=== PATIENT | male | born 1995 | race Two or more races ===

== ENCOUNTER 2024-09-13 20:30 | Emergency (ER) | payer MEDICAID, SELFPAY ==
--- NOTE | 2024-09-13 20:35 | PC.NURSE ---
Pt. walked outside and started cussing, pt. didn't come back. Unable to finish triage.
== END 2024-09-13 23:27 | disposition left against medical advice (07) ==
LOC: SERX 20:41
PROVIDERS: Emergency Provider Emergency Medicine
DX: Z53.21 Procedure and treatment not carried out due to patient leaving prior to being seen by health care provider (principal)

== ENCOUNTER 2024-09-14 23:37 | Emergency (ER) | payer MEDICAID, SELFPAY | END 2024-09-15 00:03 | disposition left against medical advice (07) | LOC: SERX 09-15 00:23 | PROVIDERS: Emergency Provider Emergency Medicine | DX: Z53.21 Procedure and treatment not carried out due to patient leaving prior to being seen by health care provider (principal) ==

== ENCOUNTER 2024-09-15 02:07 | Emergency (ER) | payer MEDICAID, SELFPAY ==
--- NOTE | 2024-09-15 02:26 | PC.NURSE ---
SEEN PT LEAVING ER.
--- NOTE | 2024-09-15 02:26 | PC.NURSE ---
INFORMED BY PROJECT BUYER THAT THE PT LEFT THE LOBBY AND I WALKING DOWN THE ROAD.
== END 2024-09-15 03:58 | disposition left against medical advice (07) ==
PROVIDERS: Emergency Provider Emergency Medicine
DX: Z53.21 Procedure and treatment not carried out due to patient leaving prior to being seen by health care provider (principal)

== ENCOUNTER 2024-09-16 00:42 | Emergency (ER) | payer MEDICAID, SELFPAY ==
[2024-09-16 00:58] VITALS: BP 148/96; PULSE 99; RESP 18; TEMP 36.9; O2SAT 100; BMI 24.1
--- NOTE | 2024-09-16 02:37 | PC.NURSE ---
PT WALKED OUT OF ER LOBBY AND LEFT
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
== END 2024-09-16 02:52 | disposition left against medical advice (07) ==
LOC: SERX 03:21
PROVIDERS: Emergency Provider Emergency Medicine
DX: H57.10 Ocular pain, unspecified eye (principal); Z53.29 Procedure and treatment not carried out because of patient's decision for other reasons
CPT/HCPCS: 99281

== ENCOUNTER 2024-10-22 10:06 | Emergency (ER) | payer SELFPAY ==
--- NOTE | 2024-10-22 11:10 | PC.NURSE ---
called pt back, no answer at this time
--- NOTE | 2024-10-22 11:26 | PD.EDRME ---
Rapid Medical Screening Exam RME Arrival date/time: 10/22/24 10:06 Chief Complaint: Eye Problems Time Seen by Provider: 10/22/24 10:58
--- NOTE | 2024-10-22 14:47 | PC.NURSE ---
PT CALLED MULTIPLE TIMES BY STAFF NO RESPONSE THIS RN LOOKED IN LOBBY AND OUT SIDE, PT NOT HERE. PT ELOPED
== END 2024-10-22 14:49 | disposition left against medical advice (07) ==
LOC: SERX 14:18
PROVIDERS: Emergency Provider Family Medicine
DX: Z53.21 Procedure and treatment not carried out due to patient leaving prior to being seen by health care provider (principal)

== ENCOUNTER 2025-03-01 23:15 | Emergency (ER) | payer MEDICAID, SELFPAY ==
[2025-03-01 23:17] VITALS: BMI 22.8
--- NOTE | 2025-03-02 00:05 | PC.NURSE ---
Pt did not answer when name was called and was not found outside.
--- NOTE | 2025-03-02 00:25 | PC.NURSE ---
Pt did not answer when name was called in the lobby and was not found outside.
== END 2025-03-01 23:20 | disposition left against medical advice (07) ==
LOC: SERX 23:37
PROVIDERS: Emergency Provider Emergency Medicine
DX: Z53.21 Procedure and treatment not carried out due to patient leaving prior to being seen by health care provider (principal)
CPT/HCPCS: 99282

== ENCOUNTER 2025-03-03 20:13 | Emergency (ER) | payer MEDICAID, SELFPAY ==
[2025-03-03 20:19] VITALS: BP 144/81; PULSE 88; RESP 17; TEMP 36.9; O2SAT 95; BMI 22.8
--- NOTE | 2025-03-03 20:57 | PD.EDADULT ---
ED General RME/HPI General Chief complaint: General Adult/Misc Complain Stated complaint: HAND PROBLEM Time Seen by Provider: 03/03/25 20:43 Arrival date/time: 03/03/25 20:13 RME / HPI RME / HPI narrative: 29-year-old male patient was brought in for evaluation regarding back pain. Patient is homeless, came in for chronic back pain, described as dull ache, severity mild. Patient is ambulatory. Patient denies any trauma or fall denies any dysuria denies any fever denies any vomiting denies any other complaints. Patient also denies any saddle anesthesia denies any bladder incontinence denies any bowel incontinence. Patient is ambulatory. Related Data Previous Rx's ?Medication ?Instructions ?Recorded erythromycin 5 mg/gram (0.5 %) eye 0.5 inch ophthalmic (eye) QID #3.5 11/22/23 ointment grams naproxen 500 mg tablet 500 mg PO BID PRN pain #30 tabs 05/14/24 ibuprofen 800 mg tablet 800 mg PO TID PRN pain #30 tabs 03/03/25 Allergies Allergy/AdvReac Type Severity Reaction Status Date / Time No Known Allergies Allergy Verified 03/01/25 23:21 Review of Systems Review of Systems Narrative Review of Systems: Review of system reviewed and within normal limits except mentioned in HPI ED Exam Narrative Physical exam: VITAL SIGNS: Reviewed. GENERAL APPEARANCE: Alert and interactive, follows commands, no acute distress, unkept HEAD AND FACE: Non-traumatic. ENT: PERRL, pink conjunctivitis, eyelid no trauma, Mucous membrane moist. NECK: Supple, nontender, no nuchal rigidity. CHEST: No tenderness, no crepitus, no paradoxical movement, no retractions. LUNGS: Clear, well ventilated, symmetric, no rales, no wheezing, no ronchi, no stridor, good breath sounds bilaterally. HEART: Regular rate, regular rhythm, no murmur, no gallops. ABDOMEN: Soft, positive bowel sounds, nondistended, no guarding, nontender, no rebound, no masses, RECTAL: Deferred. GENITAL: Deferred. NEUROLOGICAL: Gross motor function intact sensory function intact, Appropriate for age. MUSCULOSKELETAL: low back tenderness, no midline tenderness, full range of motion. EXTREMITIES: Nontender, full range of motion. SKIN: Color pink, dry, no rash, no lacerations, no abrasions, no contusions. LYMPHATICS: Deferred. Course Quality Measures none Orders Category Date Time Status Ibuprofen Tab [Motrin Tab] Med 03/03/25 20:55 Discontinued 800 mg PO X1 ONE Vital Signs Vital signs: Vital Signs Temperature 98.4 F 03/03/25 20:19 Pulse Rate 88 03/03/25 20:19 Respiratory Rate 17 03/03/25 20:19 Blood Pressure 144/81 H 03/03/25 20:19 Pulse Oximetry (%) 95 03/03/25 20:19 Oxygen Delivery Method Room Air 03/03/25 20:19 Discharge Plan Plan Patient Disposition: HOME (Self Care) Discharge Disposition comment: Stable Prescriptions/Referrals Prescriptions/Med Rec: New ibuprofen 800 mg tablet 800 mg PO TID PRN (Reason: pain) Qty: 30 0RF No Action naproxen 500 mg tablet 500 mg PO BID PRN (Reason: pain) Qty: 30 0RF erythromycin 5 mg/gram (0.5 %) ointment 0.5 inch ophthalmic (eye) QID Qty: 3.5 0RF Referrals: No Primary/Family,Physician [Primary Care Provider] - In 1 week Problem List Clinical Impression: Chronic low back pain Patient/Caregiver Discharge Instructions Discharge Activity: activity as tolerated Education Materials: ED Chronic Pain Additional Instructions: Thank you for the opportunity for serving you today. You are stable for discharged . You are advised to: Follow-up with your PCP in 1 to 2 days Return to ED for worsening of symptoms Increase oral fluids Take medication as prescribed Print Language: Frisian Stand Alone Forms: Sydney Award Info., Patient Portal Info Letter RAO/TANYA Supervising Physician JERRELL Supervising Physician: MD Nabil [facility] Narrative [facility] hospital course: 29-year-old male patient was brought in for evaluation regarding back pain. Patient is homeless, came in for chronic back pain, described as dull ache, severity mild. He had a back pain for a while now. Patient is ambulatory. Patient denies any trauma or fall denies any dysuria denies any fever denies any vomiting denies any other complaints. Patient also denies any saddle anesthesia denies any bladder incontinence denies any bowel incontinence. Patient is ambulatory. Imaging workup presented at this time. Patient is not showing any sign of cauda equina syndrome. Patient had chronic back pain. Patient is ambulatory. No recent trauma or fall. No fever. Patient received Motrin. Significant provide of pain. Patient is also asking for a shoes however we do not have shoes available at this time. Patient stable for discharge home Medication Administration(s) Medication Administration History Discontinued Medications Ibuprofen (Ibuprofen Tab 400 Mg Tablet) 800 mg PO X1 ONE Stop: 03/03/25 20:56 Diagnosis Differential diagnosis: Chronic back pain, lumbar strain degenerative disc disease Most likely dx, and/or detailed dx discussion: Chronic back pain, homelessness
[2025-03-03] MEDS: IBUPROFEN TAB 400 MG TABLET 800 MG PO (21:03)
== END 2025-03-03 21:06 | disposition home or self-care (01) ==
PROVIDERS: Emergency Provider Emergency Medicine
DX: M54.50 Low back pain, unspecified (principal); G89.29 Other chronic pain; Z59.00 Homelessness unspecified
CPT/HCPCS: 99282; A9270

== ENCOUNTER 2025-05-14 01:30 | Emergency (ER) | payer MEDICAID, SELFPAY ==
[2025-05-14 01:34] VITALS: BP 136/72; PULSE 104; RESP 18; TEMP 36.8; O2SAT 99
--- NOTE | 2025-05-14 02:07 | PD.EDHA ---
ED Headache RME/HPI General Chief Complaint: Eye Problems Stated Complaint: EYE SWELLING Time Seen by Provider: 05/14/25 02:06 Arrival date/time: 05/14/25 01:30 RME / HPI RME / HPI Narrative: See [facility] for Dr. Poon's HPI Documentation. Related Data Previous Rx's ?Medication ?Instructions ?Recorded erythromycin 5 mg/gram (0.5 %) eye 0.5 inch ophthalmic (eye) QID #3.5 11/22/23 ointment grams naproxen 500 mg tablet 500 mg PO BID PRN pain #30 tabs 05/14/24 ibuprofen 800 mg tablet 800 mg PO TID PRN pain #30 tabs 03/03/25 Allergies Allergy/AdvReac Type Severity Reaction Status Date / Time No Known Allergies Allergy Verified 03/01/25 23:21 Review of Systems Review of Systems Systems Reviewed: All systems reviewed, normal except as documented Past Medical History Past Medical History PSYCHO/SOCIAL: Positive Recreational Drug Use Social History SMOKING STATUS: Current some day smoker HOUSING: Homeless ED Exam Narrative Physical exam: See [facility] for Dr. Poon's Physical Exam Documentation. Course Quality Measures none Orders Category Date Time Status Acetaminophen Tab [Tylenol Tab] Med 05/14/25 02:07 Discontinued 650 mg PO X1 ONE Vital Signs Vital signs: Vital Signs Temperature 98.3 F 05/14/25 01:34 Pulse Rate 104 H 05/14/25 01:34 Respiratory Rate 18 05/14/25 01:34 Blood Pressure 136/72 H 05/14/25 01:34 Pulse Oximetry (%) 99 05/14/25 01:34 Oxygen Delivery Method Room Air 05/14/25 01:34 Headache MDM Narrative [facility] Narrative:: This section includes all my notes and documentations, including HPI, PE, and ED course. Daniel Poon MD HPI: 29 y/o male with Hx of Homelessness and Recreational Drug Use presents with headache. Not the worst headache of his life. Has trouble describing the onset. Has trouble describing the quality and quantity of the pain. Has show describing exacerbating factors or relieving factors. No dizziness. No speech or visual impairment. No loss of power in arms or legs. No numbness or tingling. No other complaints. ROS: All negative except as documented in HPI. General:? Alert and oriented.? No acute distress.?? Eyes:? Conjunctivae and lids clear.? EOMI.? PERRL. ENT:? No nasal congestion.? Pharynx normal.? Tympanic membrane normal bilaterally.??? Neck:? Supple.? No carotid bruit.? No JVD.?? Heart:? RRR.? Lungs:? No respiratory distress.? Good air movement.? No rhonchi, wheezing, rales.?? Abdomen:? Soft and nontender.? Skin:? Warm and dry.?? Neuro:? Alert and oriented X 3.? Cranial Nerves II-XII grossly intact.? No peripheral motor deficits. At this point, diagnoses include: Tension headache Treatment here included: Tylenol 650 mg He started to feel better. Recommended supportive care. Based on my best medical judgment, made decision no further evaluation or treatment indicated at this time. Patient understands and agrees to the discharge instructions customized and printed, see below. Discharge Instructions from [facility] ER printed for you: 1. Because your headache is not the worst headache of your life, no diagnostics performed. 2. Tylenol/ibuprofen as needed. 3. See a private doctor on 05/15/2025 for recheck. If needed, ask for referral to see neurologist. 4. Seek immediate medical care with worsening or with any concerns. Daniel Poon MD Patient data External records reviewed:: [facility] previous records (Reviewed prior ED records from 03/03/25. Patient was seen for Chronic low back pain.) Clinical information provided by:: patient Social determinants that could affect healthcare access:: housing (Homeless, Recreational Drug Use) Patient has the following chronic illnesses:: Recreational Drug Use How is presenting disease/condition affected by chronic disease/condition?: exacerbated by Evaluation data The following diagnostics were reviewed and interpreted by me:: other (specify) (N/A) Lab and/or radiology exams considered but not ordered:: None Interpretation Summary: None Medications / Prescriptions Medications or Prescriptions considered but not ordered:: None Medication administrations:: Medication Administration History Discontinued Medications Acetaminophen (Acetaminophen 325 Mg Tablet) 650 mg PO X1 ONE Stop: 05/14/25 02:08 Last Admin: 05/14/25 02:20 Dose: 650 mg Documented By: CVL Tylenol 650 mg Consultations Consultation(s) initiated? (list below): No Diagnosis Differential diagnosis headache: migraine, tension headache, headache and sinusitis Most likely diagnosis given after review of the tests above:: Headache Admission Indicated Admission indicated?: not indicated Explain why admission is indicated or not indicated:: With significant improvement and no condition needing emergent intervention, there was no indication for admission. Admission Request Was there a request for admission?: No Disposition Plan Disposition Plan: Discharge Discharge Attestation Discharge Attestation: The patient and all family members were given an opportunity to ask questions and understood the discharge instructions. Discharge instructions specifically effects, indications for sooner follow up or return to the emergency department, and the expected course of current diagnosis. Patient condition: Stable Discharge Plan Plan Patient Disposition: HOME (Self Care) Prescriptions/Referrals Prescriptions/Med Rec: No Action naproxen 500 mg tablet 500 mg PO BID PRN (Reason: pain) Qty: 30 0RF ibuprofen 800 mg tablet 800 mg PO TID PRN (Reason: pain) Qty: 30 0RF erythromycin 5 mg/gram (0.5 %) ointment 0.5 inch ophthalmic (eye) QID Qty: 3.5 0RF Problem List Clinical Impression: Headache Patient/Caregiver Discharge Instructions Discharge Activity: activity as tolerated Education Materials: ED Headache, Tension Additional Instructions: Discharge Instructions from [facility] ER printed for you: 1. Because your headache is not the worst headache of your life, no diagnostics performed. 2. Tylenol/ibuprofen as needed. 3. See a private doctor on 05/15/2025 for recheck. If needed, ask for referral to see neurologist. 4. Seek immediate medical care with worsening or with any concerns. Print Language: Omani
[2025-05-14] MEDS: ACETAMINOPHEN 325 MG TABLET 650 MG PO (02:20)
[2025-05-14 02:31] VITALS: RESP 12
== END 2025-05-14 02:13 | disposition home or self-care (01) ==
LOC: SERX 03:13
PROVIDERS: Emergency Provider Emergency Medicine
DX: R51.9 Headache, unspecified (principal)
CPT/HCPCS: 99283; A9270

== ENCOUNTER 2025-05-16 00:17 | Emergency (ER) | payer MEDICAID, SELFPAY ==
[2025-05-16 00:18] VITALS: BMI 22.8
[2025-05-16 00:42] VITALS: BP 120/79; PULSE 97; RESP 20; TEMP 36.9; O2SAT 96
--- NOTE | 2025-05-16 00:59 | EDNOTE_ITS ---
ED Eye Problem RME/HPI General Chief complaint: Eye Problems Stated complaint: LT EYE HURTS Time Seen by Provider: 05/16/25 00:55 Arrival date/time: 05/16/25 00:17 RME / HPI RME / HPI Narrative: See [facility] for Dr. Poon's HPI Documentation. Related Data Previous Rx's ?Medication ?Instructions ?Recorded erythromycin 5 mg/gram (0.5 %) eye 0.5 inch ophthalmic (eye) QID #3.5 11/22/23 ointment grams naproxen 500 mg tablet 500 mg PO BID PRN pain #30 t abs 05/14/24 ibuprofen 800 mg tablet 800 mg PO TID PRN pain #30 t abs 03/03/25 [id number] 3.5 1 drp ophthalmic (eye) Q6H 5 days 05/16/25 mg/mL-10,000 unit/mL-0.1% eye #5 mL drops (Maxitrol) Allergies Allergy/AdvReac Type Severity Reaction Status Date / Time No Known Allergies Allergy Verified 03/01/25 23:21 Review of Systems Review of Systems Systems Reviewed: All systems reviewed, normal except as documented Past Medical History Past Medical History PSYCHO/SOCIAL: Positive Recreational Drug Use ED Exam Narrative Physical exam: See [facility] for Dr. Poon's Physical Exam Documentation. Course Quality Measures none Vital Signs Vital signs: Vital Signs Temperature 98.5 F 05/16/25 00:42 Pulse Rate 97 05/16/25 00:42 Respiratory Rate 20 05/16/25 00:42 Blood Pressure 120/79 05/16/25 00:42 Pulse Oximetry (%) 96 05/16/25 00:42 Oxygen Delivery Method Room Air 05/16/25 00:42 Eye [facility] Narrative [facility] Narrative:: This section includes all my notes and documentations, including HPI, PE, and ED course. Daniel Poon MD HPI: 29 y/o male with Hx of Recreational Drug use presents with left eye pain and redness and green crusting for several days. No other complaints. ROS: All negative except as documented in HPI. Physical Exam: General: Alert and oriented. Eyes: Left conjunctiva injected with exudate. ENT: No nasal congestion. Neck: Supple. Lungs: No respiratory distress. Skin: Warm and dry. Neuro: Alert and oriented X 3. At this point, diagnoses include: Bacterial Conjunctivitis Recommended outpatient care. Based on my best medical judgment, made decision no further evaluation or treatment indicated at this time. Patient understands and agrees to the discharge instructions customized and printed, see below. Discharge Instructions from Dr. Poon printed for you: 1. Use the eyedrops for your right eye infection. 2. See a private doctor on 05/17/2025 for recheck. To make sure you are healing without complications. Ask for referral to see mental health program specialist. 3. Seek immediate medical care with worsening or with any concerns. Daniel Poon MD Patient data External records reviewed:: [facility] previous records (Reviewed prior ED records from 05/14/25. Patient was seen for Headache.) Clinical information provided by:: patient Social determinants that could affect healthcare access:: substance use Patient has the following chronic illnesses:: Recreational Drug Use How is presenting disease/condition affected by chronic disease/condition?: exacerbated by Evaluation data The following diagnostics were reviewed and interpreted by me:: other (specify) (N/A) Lab and/or radiology exams considered but not ordered:: None Interpretation Summary: None Medications / Prescriptions Medications or Prescriptions considered but not ordered:: None Medication administrations:: None Consultations Consultation(s) initiated? (list below): No Diagnosis Eye Problem Differential Diagnosis: corneal abrasion, conjunctivitis, acute iritis, hyphema, periorbital cellulitis, subconjunctival hemorrhage, glaucoma, corneal ulcer and ruptured globe Most likely diagnosis given after review of the tests above:: Bacterial Conjunctivitis Admission Indicated Admission indicated?: not indicated Explain why admission is indicated or not indicated:: With no condition needing emergent intervention, there was no indication for admission. Admission Request Was there a request for admission?: No Disposition Plan Disposition Plan: Discharge Discharge Attestation Discharge Attestation: The patient and all family members were given an opportunity to ask questions and understood the discharge instructions. Discharge instructions specifically effects, indications for sooner follow up or return to the emergency department, and the expected course of current diagnosis. Patient condition: Stable Discharge Plan Plan Patient Disposition: HOME (Self Care) Prescriptions/Referrals Prescriptions/Med Rec: New neomycin-polymyxin B-dexameth [Maxitrol] 3.5mg/mL-10,000 unit/mL-0.1 % drops,suspension 1 drp ophthalmic (eye) Q6H 5 Days Qty: 5 0RF No Action naproxen 500 mg tablet 500 mg PO BID PRN (Reason: pain) Qty: 30 0RF ibuprofen 800 mg tablet 800 mg PO TID PRN (Reason: pain) Qty: 30 0RF erythromycin 5 mg/gram (0.5 %) ointment 0.5 inch ophthalmic (eye) QID Qty: 3.5 0RF Problem List Clinical Impression: Bacterial conjunctivitis Patient/Caregiver Discharge Instructions Discharge Activity: activity as tolerated Education Materials: ED Conjunctivitis, Bacterial Additional Instructions: Discharge Instructions from Dr. Poon printed for you: 1. Use the eyedrops for your right eye infection. 2. See a private doctor on 05/17/2025 for recheck. To make sure you are healing without complications. Ask for referral to see mental health program specialist. 3. Seek immediate medical care with worsening or with any concerns. Print Language: Yi Stand Alone Forms: Sydney Award Info., Patient Portal Info Letter
== END 2025-05-16 01:03 | disposition home or self-care (01) ==
PROVIDERS: Emergency Provider Emergency Medicine
DX: H10.89 Other conjunctivitis (principal)
CPT/HCPCS: 99281

== ENCOUNTER 2025-05-16 20:17 | Emergency (ER) | payer MEDICAID, SELFPAY ==
[2025-05-16 20:18] VITALS: BMI 22.8
--- NOTE | 2025-05-16 20:56 | PC.NURSE ---
SEEN BY SECURITY LEAVING THE PROPERTY
== END 2025-05-16 20:57 | disposition left against medical advice (07) ==
PROVIDERS: Emergency Provider Emergency Medicine
DX: Z53.21 Procedure and treatment not carried out due to patient leaving prior to being seen by health care provider (principal)
CPT/HCPCS: 99281

== ENCOUNTER 2025-05-16 23:38 | Emergency (ER) | payer MEDICAID, SELFPAY ==
[2025-05-16 23:38] VITALS: BMI 22.8
[2025-05-16 23:53] VITALS: BP 131/88; PULSE 98; RESP 18; TEMP 36.6; O2SAT 99
--- NOTE | 2025-05-16 23:59 | PD.EDRME ---
Rapid Medical Screening Exam RME Arrival date/time: 05/16/25 23:38 Chief Complaint: Eye Problems Vital signs: Vital Signs Temperature 97.9 F 05/16/25 23:53 Pulse Rate 98 05/16/25 23:53 Respiratory Rate 18 05/16/25 23:53 Blood Pressure 131/88 H 05/16/25 23:53 Pulse Oximetry (%) 99 05/16/25 23:53 Oxygen Delivery Method Room Air 05/16/25 23:53 RME Narrative: Patient reports right eye pain. Seen in ED this morning for same complaint.
--- NOTE | 2025-05-17 00:06 | PD.EDADDENDU ---
Emergency Room Addendum Addendum Narrative: When I looked for the patient to start my evaluation, I was told the patient eloped. Daniel Poon MD
--- NOTE | 2025-05-17 00:11 | PC.NURSE ---
SEEN BY SECURITY LEAVING
== END 2025-05-17 00:11 | disposition left against medical advice (07) ==
PROVIDERS: Emergency Provider Emergency Medicine
DX: H57.11 Ocular pain, right eye (principal); Z53.29 Procedure and treatment not carried out because of patient's decision for other reasons
CPT/HCPCS: 99281